=== PATIENT | male | born 2000 | race Hispanic/Latino ===

== ENCOUNTER 2022-07-31 00:36 | Inpatient (IN) | payer OTHER, SELFPAY ==
[2022-07-31] MEDS ORDERED: fentaNYL 50 mcg/mL 1 mL Vial ONE ×2 (00:39→21:29)
[2022-07-31] MEDS ORDERED: Ondansetron PF 4 MG/2 ML Vial IVP PRN (00:48)
[2022-07-31] MEDS ORDERED: Ipratropium/Albuterol 3 ML NEB NEB PRN (00:48)
[2022-07-31] MEDS ORDERED: Morphine 2 MG/ML VIAL SLOW IVP PRN (00:48)
[2022-07-31] MEDS ORDERED: TETANUS, DIPHTHERIA TOX,ADULT (TDVAX) 0.5 ML VIAL IM ONE (00:48)
[2022-07-31] MEDS ORDERED: Morphine 4 MG/ML VIAL ONE ×3 (00:50→01:06)
[2022-07-31] MEDS ORDERED: traMADol HCl 50 MG TAB PO PRN (00:52)
[2022-07-31 01:08] LABS: #Basophils 0.1 thou/uL (0.0-0.2); #Eosinphils 0.1 thou/uL (0.0-0.7); #Monocytes 0.8 thou/uL (0.11-0.59); #Neutrophils 13.5 thou/uL (1.40-6.50); %Basophils 0.5 % (0.0-1.0); %Eosinophils 0.3 % (0.0-10.0); %Lymphocytes 15.5 % (21.0-51.0); %Monocytes 4.8 % (0.0-10.0); %Neutrophils 78.3 % (42.0-75.0); Hemoglobin 12.9 g/dL (14.0-18.0); Mean Corpuscular HGB CONC 34.9 g/dL (32.0-36.0); Mean Corpuscular Hemoglobin 30.6 pg (27.0-31.0); Mean Corpuscular Volume 87.7 fl (78.0-98.0); Mean Platelet Volume 10.7 fL (7.4-10.4); Platelet Count 205 10x3/uL (130-400); RBC Distribution Width 12.8 % (11.5-14.5); Red Blood Cell (RBC) Count 4.22 mill/uL (4.70-6.10); White Blood Cell (WBC) Count 17.2 10x3/uL (4.8-10.8)
[2022-07-31] MEDS ORDERED: Thrombin 5000 UNITS/5 ML VIAL ONE (01:09)
[2022-07-31] MEDS ORDERED: Bupivacaine PF 0.5% 30 ML VIAL ONE ×3 (01:09→20:29)
[2022-07-31] MEDS ORDERED: LORazepam 2 MG/ML SYR.(CARPUJECT) ONE (01:10)
[2022-07-31] MEDS ORDERED: HYDROmorphone 2 MG/ML VIAL ONE (01:20)
[2022-07-31] MEDS ORDERED: Fentanyl 250 MCG/5 ML VIAL ONE ×2 (01:20→15:46)
[2022-07-31] MEDS ORDERED: Morphine 4 MG/ML VIAL SLOW IVP PRN (01:23)
[2022-07-31 01:27] LABS: INR-International Normal Ratio 1.1; Prothrombin Time 14.9 sec (12.0-14.7)
[2022-07-31 01:28] LABS: PTT 23.9 sec (22.9-36.1)
[2022-07-31 01:31] LABS: Acetaminophen Less than 10.0 mcg/mL (10.0-30.0); Alcohol Less than 10 mg/dL (Less than 10); Salicylate Less than 8.0 mg/dL (15.0-30.0)
[2022-07-31 01:32] LABS: ALT (SGPT) 17 U/L (8-55); AST (SGOT) 19 U/L (5-34); Alkaline Phosphatase 43 U/L (40-110); Anion Gap 14 mmol/L (10-20); BUN (Urea Nitrogen) 15 mg/dL (8.9-20.6); Bilirubin, Total 0.4 mg/dL (0.2-1.2); Calc. Creatinine Clearance 0 mL/min (70-130); Calcium 8.4 mg/dL (7.8-10.44); Carbon Dioxide 18 mmol/L (22-29); Chloride 109 mmol/L (98-107); Estimated GFR 102; Glucose 168 mg/dL (70-105); Potassium 3.6 mmol/L (3.5-5.1); Sodium 137 mmol/L (136-145)
[2022-07-31] MEDS ORDERED: Rocuronium Bromide 10 MG/ML (10ML VIAL) ONE ×2 (01:49→16:13)
[2022-07-31] MEDS ORDERED: Lidocaine 1% PF 5 ML VIAL ONE ×2 (01:49→16:13)
[2022-07-31] MEDS ORDERED: Ondansetron PF 4 MG/2 ML Vial ONE ×2 (01:49→16:13)
[2022-07-31] MEDS ORDERED: Ketorolac Tromethamine 30 MG/ML VIAL ONE ×2 (01:49→16:13)
[2022-07-31] MEDS ORDERED: Dexamethasone 20 MG/5 ML VIAL ONE ×2 (01:49→16:13)
[2022-07-31] MEDS ORDERED: PROPOFOL 200 MG/20 ML VIAL ONE ×2 (01:49→16:13)
[2022-07-31] MEDS ORDERED: SUGAMMADEX SODIUM 200 MG/2 ML VIAL ONE (01:51)
[2022-07-31] MEDS ORDERED: Ondansetron HCl/PF 4 MG/2 ML Vial IVP PRN ×2 (01:58→21:18)
[2022-07-31] MEDS ORDERED: Promethazine HCl 25 MG/ML VIAL IM PRN ×2 (01:58→21:18)
[2022-07-31] MEDS ORDERED: Meperidine HCl/PF 25 MG/ML VIAL SLOW IVP PRN ×2 (01:58→21:18)
[2022-07-31] MEDS ORDERED: Meperidine HCl/PF 25 MG/ML VIAL ONE (03:34)
[2022-07-31] MEDS: Sodium Chloride 0.9% 1,000 ML IV SCH ×4 (04:00→23:14)
[2022-07-31] MEDS: Acetaminophen 500 MG TAB PO SCH ×4 (04:23→18:12)
[2022-07-31 04:44] LABS: #Monocytes 0.3 thou/uL (0.11-0.59); #Neutrophils 13.7 thou/uL (1.40-6.50); %Basophils 0.2 % (0.0-1.0); %Lymphocytes 3.5 % (21.0-51.0); %Monocytes 1.7 % (0.0-10.0); %Neutrophils 94.1 % (42.0-75.0); Hemoglobin 12.4 g/dL (14.0-18.0); Mean Corpuscular HGB CONC 34.8 g/dL (32.0-36.0); Mean Corpuscular Hemoglobin 30.9 pg (27.0-31.0); Mean Corpuscular Volume 88.8 fl (78.0-98.0); Mean Platelet Volume 10.4 fL (7.4-10.4); Platelet Count 153 10x3/uL (130-400); Red Blood Cell (RBC) Count 4.01 mill/uL (4.70-6.10); White Blood Cell (WBC) Count 14.6 10x3/uL (4.8-10.8)
[2022-07-31 04:46] VITALS: BMI 28.0
[2022-07-31 04:52] LABS: Lactic Acid 0.8 mmol/L (0.5-2.2)
[2022-07-31 05:01] LABS: Anion Gap 8 mmol/L (10-20); BUN (Urea Nitrogen) 15 mg/dL (8.9-20.6); Calc. Creatinine Clearance 133 mL/min (70-130); Carbon Dioxide 24 mmol/L (22-29); Chloride 109 mmol/L (98-107); Estimated GFR 110; Glucose 164 mg/dL (70-105); Potassium 4.4 mmol/L (3.5-5.1); Sodium 137 mmol/L (136-145)
[2022-07-31] MEDS: traMADol HCl 50 MG TAB PO SCH ×3 (05:29→18:11)
[2022-07-31] MEDS ORDERED: CEFAZOLIN 2 GM in Sodium Chloride 0.9% 100 ML IVPB SCH (08:00)
[2022-07-31] MEDS: Famotidine/PF 20 mg/2ml Vial SLOW IVP SCH ×2 (08:52→21:27)
[2022-07-31] MEDS ORDERED: Bupivacaine 0.25% HCL 30 ML VIAL ONE (15:21)
[2022-07-31] MEDS ORDERED: Hetastarch 6% 500 ML 500 ML ONE (15:26)
[2022-07-31] MEDS ORDERED: Lidocaine 2% PF 5 ML VIAL ONE (15:26)
[2022-07-31] MEDS ORDERED: Betamet Acet/Betamet Na Ph 30 MG/5 ML VIAL ONE (15:26)
[2022-07-31] MEDS ORDERED: Bacitracin Zinc Ointment 30 gm TUBE ONE (15:26)
[2022-07-31] MEDS ORDERED: Midazolam HCl 2 mg/2 ml Vial ONE (15:46)
[2022-07-31] MEDS ORDERED: HYDROmorphone 0.5 MG/0.5 ML SYRINGE ONE (15:46)
[2022-07-31] MEDS ORDERED: Dexmedetomidine 200 MCG/2 ML VIAL ONE (15:46)
[2022-07-31] MEDS ORDERED: Famotidine/PF 20 mg/2ml Vial ONE (15:47)
[2022-07-31] MEDS ORDERED: Heparin 10,000 UNITS/ 10 ML VIAL ONE (15:53)
[2022-07-31] MEDS: CEFAZOLIN 2 GM in Sodium Chloride 0.9% 100 ML IVPB SCH (16:01)
[2022-07-31] MEDS ORDERED: Sodium Chloride 0.9% 100 ML ONE (16:02)
[2022-07-31] MEDS ORDERED: CEFAZOLIN 2 GM VIAL ONE (16:02)
[2022-07-31] MEDS ORDERED: NEOSTIGMINE 3 MG/3 ML SYR 3 MG/3 ML SYRINGE ONE (16:13)
[2022-07-31] MEDS ORDERED: Glycopyrrolate 0.2 MG/ML 5 ML SYRINGE ONE (16:13)
[2022-07-31] MEDS ORDERED: Vancomycin 1 GM VIAL ONE (16:47)
[2022-07-31] MEDS ORDERED: PACU-Morphine 4MG/ML VIAL SLOW IVP PRN (21:18)
[2022-07-31] MEDS ORDERED: HYDROmorphone 2 MG/ML VIAL SLOW IVP PRN (21:18)
[2022-07-31] MEDS ORDERED: HYDROcodone/Acetaminophen 7.5/325 mg Tablet PO PRN ×2 (21:30)
[2022-07-31] MEDS: Gentamicin Sulfate 80 MG in Premix Bag 1 BAG IVPB SCH (23:13)
[2022-08-01] MEDS: Morphine 4 MG/ML VIAL SLOW IVP PRN (00:44)
[2022-08-01] MEDS: Vancomycin 1 GM in Premix Bag 1 BAG IVPB SCH ×3 (00:46→23:15)
[2022-08-01] MEDS: Acetaminophen 500 MG TAB PO SCH ×4 (01:22→20:27)
[2022-08-01] MEDS: CEFAZOLIN 2 GM in Sodium Chloride 0.9% 100 ML IVPB SCH ×3 (01:53→16:36)
[2022-08-01 02:46] LABS: Bacteria/HPF None Seen HPF (None Seen); Bilirubin Negative (Negative); Blood, Urine Negative (Negative); Clarity Clear (Clear); Glucose, Urine (Dipstick) Normal (Negative); Ketone, Urine 10 mg/dL (Negative); Leukocyte Negative Leu/uL (Negative); Nitrite Negative (Negative); Protein, Urine (Dipstick) Negative (Neg-Trace); RBC/HPF 0-3 HPF (0-3); Squamous Epithelial None Seen HPF (0-3); Urobilinogen Normal mg/dL (Less than 2); WBC/HPF 0-3 HPF (0-3); pH, Urine 6.5 (5.0-9.0)
[2022-08-01 02:53] LABS: Amphetamine Not Detected (NotDetected); Barbiturates Screen Not Detected (NotDetected); Benzodiazepine Screen Not Detected (NotDetected); Cocaine Metabolite Screen Not Detected (NotDetected); Methadone Not Detected (NotDetected); Methamphetamine Not Detected (NotDetected); Opiate Screen Detected (NotDetected); Oxycodone Screen Not Detected (NotDetected); Phencyclidine (PCP) Not Detected (NotDetected); THC/Cannabinoid Screen Detected (NotDetected); Tricyclic Screen Not Detected (NotDetected)
[2022-08-01] MEDS: Gentamicin Sulfate 80 MG in Premix Bag 1 BAG IVPB SCH (05:44)
[2022-08-01] MEDS: Famotidine/PF 20 mg/2ml Vial SLOW IVP SCH ×2 (08:50→20:28)
[2022-08-01] MEDS ORDERED: traMADol HCl 50 MG TAB PO PRN (10:45)
[2022-08-01] MEDS: traMADol HCl 50 MG TAB PO SCH ×3 (12:03→23:15)
[2022-08-01] MEDS: Ketorolac Tromethamine 30 MG/ML VIAL IVP SCH ×3 (12:04→23:14)
[2022-08-01] MEDS: Sodium Chloride 0.9% 1,000 ML IV SCH ×2 (12:05→19:24)
[2022-08-01] MEDS: Diazepam 2 MG TAB PO PRN (16:36)
[2022-08-01] MEDS: Cyclobenzaprine 10 MG TAB PO PRN ×2 (20:26→20:29)
[2022-08-01] MEDS ORDERED: Pregabalin 25 MG CAP PO SCH (21:00)
[2022-08-02] MEDS: Morphine 4 MG/ML VIAL SLOW IVP PRN (00:01)
[2022-08-02] MEDS: CEFAZOLIN 2 GM in Sodium Chloride 0.9% 100 ML IVPB SCH (01:30)
[2022-08-02] MEDS: Acetaminophen 500 MG TAB PO SCH ×2 (01:30→06:22)
[2022-08-02 06:03] LABS: #Monocytes 0.6 thou/uL (0.11-0.59); #Neutrophils 4.3 thou/uL (1.40-6.50); %Basophils 0.5 % (0.0-1.0); %Eosinophils 0.3 % (0.0-10.0); %Lymphocytes 32.8 % (21.0-51.0); %Monocytes 7.9 % (0.0-10.0); %Neutrophils 58.2 % (42.0-75.0); Hemoglobin 9.4 g/dL (14.0-18.0); Mean Corpuscular HGB CONC 32.1 g/dL (32.0-36.0); Mean Corpuscular Hemoglobin 29.8 pg (27.0-31.0); Mean Platelet Volume 10.6 fL (7.4-10.4); Platelet Count 141 10x3/uL (130-400); RBC Distribution Width 13.2 % (11.5-14.5); Red Blood Cell (RBC) Count 3.15 mill/uL (4.70-6.10); White Blood Cell (WBC) Count 7.3 10x3/uL (4.8-10.8)
[2022-08-02] MEDS: traMADol HCl 50 MG TAB PO SCH (06:23)
[2022-08-02] MEDS: Diazepam 2 MG TAB PO PRN (06:23)
[2022-08-02] MEDS: Ketorolac Tromethamine 30 MG/ML VIAL IVP SCH (06:24)
[2022-08-02] MEDS: Sodium Chloride 0.9% 1,000 ML IV SCH (06:24)
[2022-08-02 06:46] LABS: Anion Gap 10 mmol/L (10-20); BUN (Urea Nitrogen) 11 mg/dL (8.9-20.6); Calc. Creatinine Clearance 157 mL/min (70-130); Calcium 8.3 mg/dL (7.8-10.44); Carbon Dioxide 27 mmol/L (22-29); Chloride 105 mmol/L (98-107); Estimated GFR 126; Glucose 102 mg/dL (70-105); Magnesium 2.3 mg/dL (1.6-2.6); Phosphorus 3.1 mg/dL (2.3-4.7); Potassium 3.7 mmol/L (3.5-5.1); Sodium 138 mmol/L (136-145)
[2022-08-02] MEDS ORDERED: Lorazepam 0.5 MG TAB PO PRN (08:28)
[2022-08-02 08:35] VITALS: BP 115/72; TEMP 97.7
[2022-08-02] MEDS ORDERED: Pregabalin 25 MG CAP PO SCH (09:00)
[2022-08-02] MEDS: Famotidine/PF 20 mg/2ml Vial SLOW IVP SCH (09:59)
[2022-08-02] MEDS ORDERED: traMADol HCl 50 MG TAB PO SCH (12:00)
[2022-08-02] MEDS ORDERED: Ibuprofen 200 MG TAB PO PRN (12:00)
== END 2022-08-02 12:45 | disposition home or self-care (01) | DRG 906 ==
LOC: ERS 00:36 → SDC/OP 01:54 → OBSVTOIN 04:00 → SURG B 04:00
PROVIDERS: ADMIT Surgery; ATTEND Surgery
PROC: 0KQD0ZZ Repair Left Hand Muscle, Open Approach (ICD-10-PCS; principal; 2022-07-31)
PROC: 0KQB0ZZ Repair Left Lower Arm and Wrist Muscle, Open Approach (ICD-10-PCS; 2022-07-31)
PROC: 0LQ60ZZ Repair Left Lower Arm and Wrist Tendon, Open Approach (ICD-10-PCS; 2022-07-31)
PROC: 0LB60ZZ Excision of Left Lower Arm and Wrist Tendon, Open Approach (ICD-10-PCS; 2022-07-31)
PROC: 0KBB0ZZ Excision of Left Lower Arm and Wrist Muscle, Open Approach (ICD-10-PCS; 2022-07-31)
PROC: 03LA0ZZ Occlusion of Left Ulnar Artery, Open Approach (ICD-10-PCS; 2022-07-31)
PROC: 01Q40ZZ Repair Ulnar Nerve, Open Approach (ICD-10-PCS; 2022-07-31)
DX: S65.012A Laceration of ulnar artery at wrist and hand level of left arm, initial encounter (principal); S56.222A Laceration of other flexor muscle, fascia and tendon at forearm level, left arm, initial encounter; W08.XXXA Fall from other furniture, initial encounter; H40.9 Unspecified glaucoma
CPT/HCPCS: 36415; 80048; 80306; 80307; 81001; 83605; 83735; 84100; 85025; 85610; 85730; 86850; 86900; 86901; 90714; C1713; C1776; G0390; J0702; J1100; J1170; J1580; J1644; J1650; J1885; J2001; J2060; J2175; J2250; J2270; J2405; J2704; J3010; J3370; J3370-JW; J3490; J7050; S0020; S0028